=== PATIENT | male | born 1975 | race Caucasian/White ===

== ENCOUNTER → 2018-04-07 10:08 | Outpatient (CLI) | payer OTHER, SELFPAY ==
[2017-04-12 09:28] VITALS: BMI 29.4
[2018-04-07 11:20] LABS: Color, Urine Yellow (Yellow); Glucose, Dipstick 50 mg/dl (Normal); Ketone-Dipstick 15 mg/dl (Negative); Leukocyte Esterase-Dipstick Negative /ul (Negative); Nitrite-Dipstick Negative (Negative); Occult Blood-Urine Negative /ul (Negative); Protein-Dipstick Negative (Negative); Specific Gravity, Urine 1.015 (1.002-1.030); Urine Bilirubin Dipstick Negative (Negative); Urine Clarity Clear (Clear); Urine Urobilinogen Normal (Normal); Urine pH 6.5 (5.0 - 8.0)
[2018-04-07 11:23] LABS: Absolute Lymphocyte Count 1.75 X10^3/ul (0.83-4.51); Absolute Neutrophil Count 4.8 X10^3/uL (2.0-7.7); Basophil# 0.03 X10^3/uL; Basophil% 0.4 % (0-1); Eosinophils% 1.4 % (0-5); Hematocrit 46.7 % (40-54); Hemoglobin 15.5 g/dl (13.0-16.5); Lymphocyte # 1.75 X10^3/ul (4.0); Lymphocyte % 24.6 % (19-41); Mean Corp Hgb Conc 33.2 g/gl (32-36); Mean Corpuscular Hgb 29.2 pg (27.0-32.0); Mean Corpuscular Volume 87.9 fL (80-94); Mean Platelet Vol. 10.8 fl (6.2-12.0); Monocyte# 0.44 X10^3/uL; Monocyte% 6.2 % (0-10); Neutrophil # 4.78 X10^3/uL (2.7-7.7); Neutrophil % 67.3 % (47-70); Platelet Count 224 K/mm3 (150-450); RBC Distribution Width CV 12.9 % (11.6-14.6); RBC Distribution Width SD 41.2 fl (35.1-43.9); Red Blood Count 5.31 M/mm3 (4.6-6.2); White Blood Count 7.1 K/mm3 (4.4-11.0)
[2018-04-07 11:24] LABS: POSITIVE COUNT NO; POSITIVE DIFFERENTIAL NO; POSITIVE MORPHOLOGY NO
[2018-04-07 11:48] LABS: ALB/GLOB Ratio 1.3 RATIO (0.9-2.4); AST(SGOT) 16 U/L (15-37); Alanine Aminotransfer ALT/SGPT 28 U/L (16-61); Albumin, Serum 3.9 g/dL (3.2-5.0); Alkaline Phosphatase 74 U/L (45-117); Anion Gap 6 (5-15); BUN 15 mg/dL (7-18); BUN/Creat Ratio 15.8 RATIO (10-20); Calcium,Total 8.6 mg/dL (8.5-10.1); Chloride 107 mmol/L (98-107); Cholesterol 153 mg/dL (200); Creatinine, Serum 0.95 mg/dL (0.70-1.30); EST Glomerular Filtration Rate 91 mL/min (>60); Est Glom Filt Rate - Afr Amer 111 mL/min (>60); Globulin 3.1 g/dL (2.2-4.2); Glucose 129 mg/dL (74-106); High Density Lipoprotein 54 mg/dL; Potassium 4.4 mmol/L (3.5-5.1); Sodium Level 141 mmol/L (136-145); Triglycerides 108 mg/dL; Very Low Density Lipoprotein 22 mg/dL (5-40)
[2018-04-07 11:53] LABS: Hemoglobin A1c 7.8 % (4.2-6.3)
== END ==
PROVIDERS: Family Provider Family Medicine; PCP Family Medicine; Referring Provider Family Medicine; Visit Provider Family Medicine
DX: Z00.00 Encounter for general adult medical examination without abnormal findings (principal); E11.65 Type 2 diabetes mellitus with hyperglycemia; E78.00 Pure hypercholesterolemia, unspecified
CPT/HCPCS: 36415; 80053; 80061; 81002; 83036; 85025

== ENCOUNTER 2018-07-03 13:29 | Emergency (ER) | payer OTHER, SELFPAY ==
[2018-07-03 13:30] VITALS: BP 145/94; PULSE 113; RESP 16; TEMP 36.7; O2SAT 96; BMI 29.0
--- NOTE | 2018-07-03 13:50 | RAD_ITS ---
STUDY: X-RAY CHEST REASON FOR EXAM: Male, 42 years old. Hemoptysis. TECHNIQUE: PA and lateral views of the chest. COMPARISON: Comparison is made with prior examination dated April 12, 2017. FINDINGS: EKG electrodes are seen. The lungs are clear and expanded. There is no demonstrated pleural abnormality. Normal size heart. Calcified right hilar lymph nodes. Normal visualized pulmonary arteries. Normal visualized aortic arch and descending thoracic aorta. Normal visualized thoracic spine. Normal visualized ribs, clavicles, and shoulders. There is no demonstrated abnormality of the visualized soft tissue structures of the upper abdomen. RAD/Chest PA and Lateral IMPRESSION: Normal x-ray examination of the chest. Electronically Signed: Joaquin Frye, at 15:01 EST , Service support ,
--- NOTE | 2018-07-03 13:55 | ED.VIS.GEN ---
History of Present Illness Chief Complaint: Cough Detail of Chief Complaint: Hemoptysis Informant: Patient Onset: Today Context: Sudden Onset Quality: Coughed twice at work both times brian hemoptysis Current Severity: Mild Maximum Severity: Mild Worsened by: Nothing Relieved by: Nothing Associated Symptoms: None Narrative: 42-year-old gentleman with history of diabetes and CVA 8 years ago who presents with hemoptysis. He states he coughed while working and noted brian blood. He went to the way scan coughed again and noted brian blood. He contacted nurse who recommended he go to the walk-in clinic. The now [facility] referred him to the emergency department. He is a smoker. He smoked for 30 years. He smokes approximately 1 pack/day. He denies fever, chills or night sweats. He denies weight loss. He denies myalgias arthralgias. He denies chest pain. He has no history of pulmonary embolus or DVT nor does he have any risk factors. He denies leg pain, swelling discoloration. He is on no anticoagulant. He states that he takes an aspirin a day. Prior similar symptoms: No Recent Illness/Hospitalization: No Past Medical History - Allergies and Home Meds Allergies/Adverse Reactions: Allergies No Known Allergies Allergy (Verified 07/03/18 13:32) Primary Care Physician: Drake Deal MD [Primary Care Provider] - Prior records reviewed: Yes Past Medical History: - - Diabetes and CVA Surgical History: no surgical history Lives: Spouse/ Significant Other Smoking Status: Current every day smoker Alcohol: None Review of Systems General: Denies: Chills, Fever, Malaise, Subjective, Sweats, Weight loss Eyes: Denies: Visual changes - bilaterally, Blurred Vision - bilaterally, Diplopia ENT: Denies: Bilateral ear pain, Rhinorrhea, Sore throat Cardiovascular: Denies: Chest pain, Palpitations Respiratory: Denies: Dyspnea, Cough, Dyspnea on exertion Gastrointestinal: Denies: Abdominal pain, Nausea, Vomiting, Diarrhea, Melena, Hematochezia Genitourinary: Denies: Dysuria, Hematuria, Frequency Musculoskeletal: Denies: Myalgias, Arthralgias, Neck pain, Back pain, Extremity Pain Skin: Denies: Rash, Wounds Neurological: Denies: Headache, Weakness, Parasthesia, Numbness Hematologic: Denies: Easy bruising, Easy bleeding Allergy: Denies: Uticaria Physical Exam Vital Signs/Narrative: Vital Signs Temp Pulse Resp BP Pulse Ox 07/03/18 13:30 98.1 F 113 H 16 145/94 H 96 Inital Vital Signs reviewed: Yes General: Well nourished, Well developed, No Acute Distress Head: Normocephalic, Atraumatic Eyes: Perrl, EOMI. Negative for: Pale conjunctiva, Scleral icterus ENT: Moist mucous membranes, No rhinorrhea, TM's clear Neck: Supple, Nontender, No lymphadenopathy, No JVD Cardiovascular: Regular rate, Regular rhythm, No murmurs, Normal S1, Normal S2 Respiratory: No distress, CTA bilaterally, Chest nontender Abdomen: Soft, Nontender, Nondistended, Normal bowel sounds, No masses Back: Nontender, Normal Inspection. Negative for: CVA tenderness Extremities: - - There is no asymmetry, swelling, discoloration, leg vein distention, palpable cords or tenderness along the distribution of the deep venous system. Skin: Normal color, No rash, No Trauma. Negative for: Cyanosis, Jaundice Neurological: Alert, Oriented x3, Cranial nerves II-XII grossly intact, Normal Strength, Normal Sensation Psychological: Normal affect, Normal Mood Diagnostic/Tx/Re-eval Chest X-Ray - ED: 2 View, Read by ED Physician, Unchanged - Comparison film April 12, 2017, Normal, Heart, Lungs, Mediastinum, Bony Structures, No Acute Disease CMP, CBC are unremarkable. D-dimer is less than 0.27. With unremarkable chest x-ray no further workup is indicated. - Rhythm Strip Rhythm Strip: Sinus Rhythm Rate: 89 Ectopy: None - Medical Decision Making With history of smoking and hemoptysis need to evaluate for malignancy, infectious etiology, pulmonary embolus bronchitis. Patient states cough started approximately 8 months ago. To evaluate patient a CBC, comprehensive metabolic panel and d-dimer was obtained. ED Disposition - Plan for ED Patient: Disposition: Home or Assisted Living Diagnosis: Hemoptysis Instructions: ED Hemoptysis Referrals: Drake Deal MD [Primary Care Provider] - 3-5 Days if not improving
[2018-07-03 14:13] VITALS: O2SAT 98
[2018-07-03 14:17] VITALS: BP 133/83; PULSE 100; RESP 16; O2SAT 98
[2018-07-03 14:44] LABS: Absolute Lymphocyte Count 1.81 X10^3/ul (0.83-4.51); Absolute Neutrophil Count 4.7 X10^3/uL (2.0-7.7); Basophil# 0.03 X10^3/uL; Basophil% 0.4 % (0-1); Eosinophil# 0.09 X10^3/uL; Eosinophils% 1.3 % (0-5); Hematocrit 45.9 % (40-54); Hemoglobin 15.2 g/dl (13.0-16.5); Lymphocyte # 1.81 X10^3/ul (4.0); Lymphocyte % 25.2 % (19-41); Mean Corp Hgb Conc 33.1 g/gl (32-36); Mean Corpuscular Hgb 29.2 pg (27.0-32.0); Mean Corpuscular Volume 88.1 fL (80-94); Mean Platelet Vol. 10.9 fl (6.2-12.0); Monocyte# 0.52 X10^3/uL; Monocyte% 7.2 % (0-10); Neutrophil # 4.72 X10^3/uL (2.7-7.7); Neutrophil % 65.8 % (47-70); Platelet Count 207 K/mm3 (150-450); RBC Distribution Width CV 13.1 % (11.6-14.6); RBC Distribution Width SD 41.9 fl (35.1-43.9); Red Blood Count 5.21 M/mm3 (4.6-6.2); White Blood Count 7.2 K/mm3 (4.4-11.0)
--- NOTE | 2018-07-03 14:47 | NURSING ---
CHEMISTRIES HEMOLIZED
[2018-07-03 14:49] LABS: POSITIVE COUNT NO; POSITIVE DIFFERENTIAL NO; POSITIVE MORPHOLOGY NO
[2018-07-03 14:57] LABS: D-Dimer Quantitative (DVT/PE) < 0.27 FEU/ug/m (0.27-0.49)
[2018-07-03 15:29] LABS: ALB/GLOB Ratio 1.3 RATIO (0.9-2.4); AST(SGOT) 20 U/L (15-37); Alanine Aminotransfer ALT/SGPT 36 U/L (16-61); Albumin, Serum 3.8 g/dL (3.2-5.0); Alkaline Phosphatase 74 U/L (45-117); Anion Gap 8 (5-15); BUN 16 mg/dL (7-18); BUN/Creat Ratio 13.6 RATIO (10-20); Calcium,Total 8.5 mg/dL (8.5-10.1); Chloride 108 mmol/L (98-107); Creatinine, Serum 1.18 mg/dL (0.70-1.30); EST Glomerular Filtration Rate 71 mL/min (>60); Est Glom Filt Rate - Afr Amer 86 mL/min (>60); Estimated Creatinine Clearance 87.68 ml/min; Globulin 2.9 g/dL (2.2-4.2); Glucose 126 mg/dL (74-106); Potassium 3.8 mmol/L (3.5-5.1); Protein, Total 6.7 g/dL (6.4-8.2); Sodium Level 142 mmol/L (136-145)
[2018-07-03 15:43] VITALS: BP 128/84; PULSE 91
== END 2018-07-03 15:48 | disposition home or self-care (01) ==
PROVIDERS: Emergency Provider Emergency Medicine; Family Provider Family Medicine; PCP Family Medicine
DX: R04.2 Hemoptysis (principal); E11.9 Type 2 diabetes mellitus without complications; F17.200 Nicotine dependence, unspecified, uncomplicated; Z79.82 Long term (current) use of aspirin; Z86.73 Personal history of transient ischemic attack (TIA), and cerebral infarction without residual deficits
CPT/HCPCS: 71046; 80053; 85025; 85379; 96360; 99284; J7030; J7040; A4216

== ENCOUNTER → 2018-12-15 09:10 | Outpatient (CLI) | payer OTHER, SELFPAY ==
[2018-12-15 10:20] LABS: Absolute Lymphocyte Count 2.05 X10^3/uL (0.83-4.51); Absolute Neutrophil Count 3.8 X10^3/uL (2.0-7.7); Basophil# 0.07 X10^3/uL; Color, Urine Yellow (Yellow); Eosinophil# 0.17 X10^3/uL; Eosinophils% 2.5 % (0-5); Glucose, Dipstick 50 mg/dl (Normal); Hematocrit 48.9 % (40-54); Hemoglobin 16.1 g/dL (13.0-16.5); Ketone-Dipstick 5 mg/dl (Negative); Leukocyte Esterase-Dipstick Negative /ul (Negative); Lymphocyte # 2.05 X10^3/ul (4.0); Lymphocyte % 30.7 % (19-41); Mean Corp Hgb Conc 32.9 g/dL (32-36); Mean Corpuscular Hgb 29.4 pg (27.0-32.0); Mean Corpuscular Volume 89.4 fL (80-94); Monocyte# 0.53 X10^3/uL; Monocyte% 7.9 % (0-10); NRBC Flagged by Analyzer 0 % (0-5); Neutrophil # 3.84 X10^3/uL (2.7-7.7); Neutrophil % 57.6 % (47-70); Nitrite-Dipstick Negative (Negative); Occult Blood-Urine Negative /ul (Negative); Platelet Count 195 K/mm3 (150-450); Protein-Dipstick 15 mg/dl (Negative); RBC Distribution Width CV 12.8 % (11.6-14.6); RBC Distribution Width SD 42.4 fl (35.1-43.9); Red Blood Count 5.47 M/mm3 (4.6-6.2); Specific Gravity, Urine 1.015 (1.002-1.030); Urine Bilirubin Dipstick Negative (Negative); Urine Clarity Clear (Clear); Urine Urobilinogen 1 mg/dl (Normal); Urine pH 6.5 (5.0 - 8.0); White Blood Count 6.7 K/mm3 (4.4-11.0)
[2018-12-15 10:45] LABS: ALB/GLOB Ratio 1.2 RATIO (0.9-2.4); AST(SGOT) 17 U/L (15-37); Alanine Aminotransfer ALT/SGPT 29 U/L (16-61); Albumin, Serum 3.7 g/dL (3.2-5.0); Alkaline Phosphatase 77 U/L (45-117); Anion Gap 5 (5-15); BUN 12 mg/dL (7-18); BUN/Creat Ratio 11.9 RATIO (10-20); Chloride 109 mmol/L (98-107); Cholesterol 155 mg/dL (200); Creatinine, Serum 1.01 mg/dL (0.70-1.30); EST Glomerular Filtration Rate 85 mL/min (>60); Est Glom Filt Rate - Afr Amer 103 mL/min (>60); Globulin 3.2 g/dL (2.2-4.2); Glucose 148 mg/dL (74-106); High Density Lipoprotein 64 mg/dL; Potassium 4.8 mmol/L (3.5-5.1); Protein, Total 6.9 g/dL (6.4-8.2); Sodium Level 142 mmol/L (136-145); Triglycerides 67 mg/dL; Very Low Density Lipoprotein 13 mg/dL (5-40)
== END ==
PROVIDERS: Family Provider Family Medicine; PCP Family Medicine; Referring Provider Family Medicine; Visit Provider Family Medicine
DX: Z00.00 Encounter for general adult medical examination without abnormal findings (principal); E11.65 Type 2 diabetes mellitus with hyperglycemia; E78.00 Pure hypercholesterolemia, unspecified; Z86.73 Personal history of transient ischemic attack (TIA), and cerebral infarction without residual deficits
CPT/HCPCS: 36415; 80053; 80061; 81002; 85025

== ENCOUNTER → 2019-04-27 09:42 | Outpatient (CLI) | payer OTHER, SELFPAY ==
[2019-03-04 16:06] VITALS: BMI 29.0
[2019-04-27 11:02] LABS: AST(SGOT) 17 U/L (15-37); Alanine Aminotransfer ALT/SGPT 48 U/L (16-61); Albumin, Serum 4.1 g/dL (3.2-5.0); Alkaline Phosphatase 79 U/L (45-117); Bilirubin, Direct 0.09 mg/dL (0.00-0.30); Cholesterol 153 mg/dL (200); Globulin 3.2 g/dL (2.2-4.2); High Density Lipoprotein 68 mg/dL; Protein, Total 7.3 g/dL (6.4-8.2); Triglycerides 103 mg/dL; Very Low Density Lipoprotein 21 mg/dL (5-40)
[2019-04-27 11:12] LABS: Hemoglobin A1c 7.4 % (4.2-6.3)
== END ==
PROVIDERS: Family Provider Family Medicine; PCP Family Medicine; Referring Provider Family Medicine; Visit Provider Family Medicine
DX: E78.00 Pure hypercholesterolemia, unspecified (principal); E11.65 Type 2 diabetes mellitus with hyperglycemia
CPT/HCPCS: 36415; 80061; 80076; 83036

== ENCOUNTER → 2019-12-13 07:48 | Outpatient (CLI) | payer OTHER, SELFPAY ==
[2019-03-04 16:06] VITALS: BMI 29.0
[2019-12-13 08:40] LABS: Absolute Lymphocyte Count 1.86 X10^3/uL (0.83-4.51); Absolute Neutrophil Count 3.6 X10^3/uL (2.0-7.7); Basophil# 0.04 X10^3/uL; Basophil% 0.7 % (0-1); Eosinophil# 0.12 X10^3/uL; Hematocrit 46.6 % (40-54); Hemoglobin 15.6 g/dL (13.0-16.5); Lymphocyte # 1.86 X10^3/ul (4.0); Lymphocyte % 30.4 % (19-41); Mean Corp Hgb Conc 33.5 g/dL (32-36); Mean Corpuscular Hgb 29.9 pg (27.0-32.0); Mean Corpuscular Volume 89.3 fL (80-94); Monocyte# 0.44 X10^3/uL; Monocyte% 7.2 % (0-10); NRBC Flagged by Analyzer 0 % (0-5); Neutrophil # 3.64 X10^3/uL (2.7-7.7); Neutrophil % 59.4 % (47-70); Platelet Count 194 K/mm3 (150-450); RBC Distribution Width CV 12.4 % (11.6-14.6); RBC Distribution Width SD 40.9 fl (35.1-43.9); Red Blood Count 5.22 M/mm3 (4.6-6.2); White Blood Count 6.1 K/mm3 (4.4-11.0)
[2019-12-13 08:48] LABS: Color, Urine Straw (Yellow); Glucose, Dipstick 50 mg/dl (Normal); Ketone-Dipstick Negative (Negative); Leukocyte Esterase-Dipstick Negative /ul (Negative); Nitrite-Dipstick Negative (Negative); Occult Blood-Urine Negative /ul (Negative); Protein-Dipstick Negative (Negative); Specific Gravity, Urine 1.015 (1.002-1.030); Urine Bilirubin Dipstick Negative (Negative); Urine Clarity Clear (Clear); Urine Urobilinogen Normal (Normal); Urine pH 6.5 (5.0 - 8.0)
[2019-12-13 09:11] LABS: ALB/GLOB Ratio 1.3 RATIO (0.9-2.4); AST(SGOT) 13 U/L (15-37); Alanine Aminotransfer ALT/SGPT 28 U/L (16-61); Albumin, Serum 3.9 g/dL (3.2-5.0); Alkaline Phosphatase 75 U/L (45-117); Anion Gap 2 (5-15); BUN 10 mg/dL (7-18); BUN/Creat Ratio 10.8 RATIO (10-20); Calcium,Total 8.5 mg/dL (8.5-10.1); Chloride 105 mmol/L (98-107); Cholesterol 156 mg/dL (200); Creatinine, Serum 0.93 mg/dL (0.70-1.30); EST Glomerular Filtration Rate 93 mL/min (>60); Est Glom Filt Rate - Afr Amer 113 mL/min (>60); Globulin 3.1 g/dL (2.2-4.2); Glucose 192 mg/dL (74-106); High Density Lipoprotein 62 mg/dL; Sodium Level 138 mmol/L (136-145); Triglycerides 73 mg/dL; Very Low Density Lipoprotein 15 mg/dL (5-40)
== END ==
PROVIDERS: PCP Family Medicine; Referring Provider Family Medicine; Visit Provider Family Medicine
DX: Z00.00 Encounter for general adult medical examination without abnormal findings (principal); E11.65 Type 2 diabetes mellitus with hyperglycemia; E78.00 Pure hypercholesterolemia, unspecified
CPT/HCPCS: 36415; 80053; 80061; 81002; 83036; 85025

== ENCOUNTER 2020-12-08 15:30 | Outpatient (RCR) | payer OTHER, SELFPAY ==
[2020-11-05 07:33] VITALS: BMI 26.4
--- NOTE | 2020-11-12 16:37 | HP.PTEVAL_ITS ---
Patient's Visit Information LIYAH ARREDONDO is a 45 year old M referred to Physical Therapy by Dr. Dani Strickland DO with a diagnosis of Distal Biceps Rupture. Date of Evaluation: 11/12/20 Physical Therapist: Monica Garcia DPT - Visit Plan Frequency: 2x /Week Duration: 4 Weeks Plan: Distal Biceps Rupture-nonsurgical- focus on scapular strength/stabilization and pain free biceps/triceps strengthening. HEP Given IE: Postural correction, scapular retraction, corner stretch, isometric biceps, isometric triceps - Subjective Right hyperextended elbow- at first didnt think anything of it- saw who told him he ripped tendons in the elbow. Family MD gave him anti-inflammatories- took a week off work. No significant changes so 3 weeks ago he was playing [employer] it was so painful. He ended seeing Dr. Walters who reported that he ruptured the distal biceps. Pain is located bicipital groove, posterior shoulder blade and all around the top - small amount in the elbow area. Usually a side sleeper but is now unable due to pain so he is sleeping his back. If he lays on his back with his head turned to the right he has tingling. Generally going to work and light stuff he has no pain. He is now sleeping with anti- inflammatory Edolac. He feels that he is 60% better with the medication. Has had x-rays but no MRI. Start conservative with PT- surgery is an option as needed. Worst: 08/08 Agg: cornhole, shoveling Eases: anti- inflam, Tylenol, pain meds doesn't like to take so he doesn't. Different positions cane make it tingle. Describes the pain as stabbing pains, dull pain. Currently a 05/10. Work: [employer]- lifting up to #50- not repetitive lifting- no problems doing his job. Right hand dominate. Very active even when not at work. 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 No PATTON, blurred vision, dizziness or lightheadedness. PMHx/Meds: no change since saw . - Objective Posture: FH, RS- can correct but does not maintain. Gait: good arm swing and trunk rotation. Palpation: tender along medial scapula- infraspinatus- bicipital groove. ROM: WFL in all planes of the cervical and UE. 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 Goal Time Frame: 4-6 Weeks Goal 3:: Patient will demo full strength in right shoulder with 0/10 pain Goal Time Frame: 4-6 Weeks - Rehabilitation Potential Physical Therapy Diagnosis: Patient presents with hypomobility- he has decreased pain free ROM, strength, scapular s/s, muscular endurance leading to poor posture and increased pain with ADL's. Rehabilitation Potential: Good - Anticipated Interventions Patient/Client Instruction: Educate patient on: Benefits of Fitness Program Therapeutic Exercise to Include: Strength training, Endurance training, Balance training, Coordination, Body mechanics, Postural training, Flexibilty training, Passive ROM, Active ROM, Dynamic Lumbar Stabilization, Scapular Strength/Stabilization For the Purpose of:: To improve muscle performance and motor function Manual Therapy Techniques to Include: Soft tissue mobilization TENS: Yes Cryotherapy (ice pack, ice massage): Yes Thermo therapy (hot pack): Yes Ultrasound (thermal/non thermal): Yes Thank you for the opportunity to evaluate your patient. For Medicare and Medicare HMO plans, please review the plan of care and approve it. It will need to be FAXED BACK to us at [phone] for Medicare purposes. For Medicare only, by signing this I certify the plan of care. Please let me know if there are questions or concerns regarding this plan of care. Physician Signature: Date:
--- NOTE | 2021-03-01 08:32 | HP.PT.NRP ---
LIYAH ARREDONDO was seen in my office for initial evaluation on 11/12/20. The following Plan of Care was established for this patient: Initial Frequency: 2x /Week Initial Duration: 4 Weeks Patient/Client Instruction: Educate patient on: Benefits of Fitness Program Therapeutic Exercise to Include: Strength training, Endurance training, Balance training, Coordination, Body mechanics, Postural training, Flexibilty training, Passive ROM, Active ROM, Dynamic Lumbar Stabilization, Scapular Strength/Stabilization For the Purpose of:: To improve muscle performance and motor function Manual Therapy Techniques to Include: Soft tissue mobilization TENS: Yes Cryotherapy (ice pack, ice massage): Yes Thermo therapy (hot pack): Yes Ultrasound (thermal/non thermal): Yes This patient was last seen in our office . Pertinent comments regarding their Physical therapy will appear below: Patient has not attended PT in over 4 weeks and is appropriate for discharge- return to MD for further evaluation as needed. At this point I will be discontinuing this patient from physical therapy. I would be happy to see this patient again in the future if found appropriate by the physician. Thank you! Monica Garcia DPT Balance/Gait/Functional tests - Balance/Special Test Scores Quick DASH Score: [phone]
== END 2020-12-08 19:00 | disposition home or self-care (01) ==
LOC: PT 15:30
PROVIDERS: PCP Family Medicine; Referring Provider Orthopaedic Surgery; Visit Provider Orthopaedic Surgery
DX: S46.211D Strain of muscle, fascia and tendon of other parts of biceps, right arm, subsequent encounter (principal)
CPT/HCPCS: 97110; 97162

== ENCOUNTER → 2022-03-25 | Outpatient (CLI) | payer OTHER, SELFPAY ==
[2022-03-25 08:49] LABS: Anion Gap 4 (5-15); BUN 11 mg/dL (7-18); BUN/Creat Ratio 11.3 RATIO (10-20); Calcium,Total 9.3 mg/dL (8.5-10.1); Chloride 105 mmol/L (98-107); Creatinine, Serum 0.98 mg/dL (0.70-1.30); EST Glomerular Filtration Rate 87 mL/min (>60); Est Glom Filt Rate - Afr Amer 105 mL/min (>60); Glucose 248 mg/dL (74-106); Potassium 4.1 mmol/L (3.5-5.1); Sodium Level 139 mmol/L (136-145)
[2022-03-25 08:54] LABS: Hemoglobin A1c 8.9 % (3.8-5.6)
== END | disposition home or self-care (01) ==
LOC: LAB 07:53
PROVIDERS: PCP Family Medicine
DX: E11.9 Type 2 diabetes mellitus without complications (principal)
CPT/HCPCS: 36415; 80048; 83036

== ENCOUNTER 2022-05-12 06:06 | Inpatient (IN) | payer OTHER, SELFPAY ==
[2022-05-12] VITALS (8 sets, daily range): BP systolic 109–136; BP diastolic 73–96; PULSE 71–110; RESP 12–24; TEMP 36.1–36.5; O2SAT 92–98; BMI 25.4
--- NOTE | 2022-05-12 06:10 | CT_ITS ---
We are attempting to reach an attending provider to discuss findings. An addendum with communication details will be sent when the communication is complete. STUDY: CTA HEAD AND NECK WITH CONTRAST REASON FOR EXAM: Male, 46 years old. Neuro deficit, acute, stroke suspected RADIATION DOSAGE (If Supplied By Facility): CTDIvol = ( 19.94 ) mGy, DLP = ( 810.39 ) mGycm TECHNIQUE: CT angiography was performed with a multi-detector CT scanner. Data acquisition was obtained from the skull base through the vertex following intravenous administration of 100 mL Isovue-370. MIP images were reconstructed from the axial data set. Post-processing of the angiographic images was performed, with multiplanar reformation and 3D reconstruction. Individualized dose optimization techniques were used for this CT. COMPARISON: CT head May 12, 2022. FINDINGS: Normal bilateral petrous carotid arteries. Normal right cavernous carotid artery with a normal supraclinoid bifurcation. Normal left cavernous carotid artery with a normal supraclinoid bifurcation. Normal right A1 segments of the anterior cerebral artery. Normal left A1 segments of the anterior cerebral artery. Normal intact anterior communicating artery (ACOM). Normal bilateral A2 segments of the anterior cerebral arteries. Normal right M1 and M2 segments of the middle cerebral arteries, with a normal M1 bifurcation. Normal left M1 and M2 segments of the middle cerebral arteries, with a normal M1 bifurcation. Normal right posterior communicating artery (PCOM). Normal left posterior communicating artery (PCOM). Normal bilateral vertebral arteries. Normal basilar artery with a normal basilar bifurcation. The visualized bilateral superior cerebellar (SCA) arteries are normal. Bilateral origin of the posterior cerebral arteries which are normal variants. There is no demonstrated aneurysm of the [place]. There is no demonstrated abnormality of the visualized brain. AORTIC ARCH: Normal visualized aortic arch. Normal origins of the brachiocephalic, left common carotid, and left subclavian arteries. RIGHT CAROTID ARTERIES: Normal right common carotid artery (CCA). Normal right common carotid bulb. Normal origin of the right internal carotid (ICA) artery without a hemodynamically significant stenosis. Normal visualized cervical portion of the right internal carotid artery. Normal origin of the right external carotid artery (ECA). LEFT CAROTID ARTERIES: Normal left common carotid artery (CCA). Normal left common carotid bulb. Normal origin of the left internal carotid (ICA) artery without a hemodynamically significant stenosis. Normal visualized cervical portion of the left internal carotid artery. Normal origin of the left external carotid artery (ECA). VERTEBRAL ARTERIES: Normal bilateral vertebral arteries. CT/STROKE CTA Head AND Neck W/Con IMPRESSION: Normal CTA Head and neck with contrast. Electronically Signed: Agustin Cesar MD at 6:52 EST Reading Location ID and State: [id number] / , Service support ,
--- NOTE | 2022-05-12 06:10 | RAD_ITS ---
INDICATION: Neuro deficit, acute, stroke suspected EXAMINATION/TECHNIQUE: X-RAY - XR Chest 1 View AP portable. 6:55 AM. COMPARISON: 07/03/2018 FINDINGS: LINES/DEVICES: None. LUNGS: No consolidation. No pneumothorax. MEDIASTINUM: Unremarkable. CARDIAC SILHOUETTE: Not enlarged. BONES AND SOFT TISSUES: No acute abnormalities. RAD/Chest 1 View IMPRESSION: No evidence of active intrathoracic disease. Electronically Signed: Melanie Moses MD at 7:23 EST ,
--- NOTE | 2022-05-12 06:10 | CT_ITS ---
We are attempting to reach an attending provider to discuss findings. An addendum with communication details will be sent when the communication is complete. INDICATION: Neuro deficit, acute, stroke suspected EXAMINATION: CT BRAIN - CT Head Stroke Protocol W/O Contrast Injection TECHNIQUE: Multiple axial images were obtained of the head without intravenous contrast. A radiation dose optimization technique was used for this scan. IV Contrast dosage and agent: None. COMPARISON: FINDINGS: BRAIN: No acute bleed. No edema. Ji-white matter differentiation is maintained. VENTRICLES AND SULCI: Not dilated. EXTRA-AXIAL: No hemorrhage, fluid collection, or mass. CALVARIUM / SKULL BASE: Unremarkable. FACE/SINUSES: Unremarkable. SOFT TISSUES: Unremarkable. CT/STROKE Brain/Head without Cont IMPRESSION: No acute abnormality on noncontrast CT. CT angiogram and/or MRI may be helpful to evaluate for acute infarct as clinically indicated. Electronically Signed: Melanie Moses MD at 6:25 EST ,
--- NOTE | 2022-05-12 06:10 | EKG12_ITS ---
Test Reason : POSS STROKE Blood Pressure : / mmHG Vent. Rate : 089 BPM Atrial Rate : 089 BPM P-R Int : 154 ms QRS Dur : 080 ms QT Int : 340 ms P-R-T Axes : 073 056 046 degrees QTc Int : 413 ms Normal sinus rhythm Normal ECG Confirmed by SHARYN GAFFNEY, NORTH ([id number]), commercial production editor ROSELINE GIBSON ([id number]) on 05/16/2022 12:24:19 PM Referred By: Confirmed By:NORTH COLES MD
--- NOTE | 2022-05-12 06:11 | EDS_ITS ---
HPI History of Present Illness Chief Complaint: Neuro S/Sx Informant: patient and family (son) Onset/Context/Timing Onset: Today Context: - (Awoke with symptoms at 430, 1.5 hours prior to arrival) Timing: Continuous Quality and Location: Positive for Left Facial Droop, Left Arm Weakness, Left Leg Weakness, Expressive Aphasia and Difficulty with Ambulation Current Severity: Severe Maximum Severity: Severe Worsened by: Nothing Relieved by: Nothing Associated Symptoms Associated Symptoms: Negative for Headache, Nausea, Vomiting or Chest Pain Narrative Narrative: Patient went to bed at 830 or 9:00 last night, his woke him up at 10:30 PM which was his last known normal, for him to move to a different location and go back to sleep. He woke up at 4:30 AM symptomatic, his son brought him to the emergency department via private vehicle. History of a stroke in the past. Takes aspirin every day no anticoagulants. He is a diabetic. He denies any headache, chest pain, shortness of breath, recent fall or injury. [facility] Medical History Diabetes Stroke Home Medications aspirin 325 mg tablet 325 mg PO DAILY@0800 10/27/14 [History Last Taken Unknown] etodolac 500 mg tablet 500 mg PO ONCE #60 tabs 11/05/20 [Rx Last Taken Unknown] metformin 500 mg 24 hr tablet,extended release 2,000 mg PO DAILY 11/05/20 [History Last Taken Unknown] Allergy/AdvReac Type Severity Reaction Status Date / Time No Known Allergies Allergy Verified 05/12/22 06:32 Family History (Updated 11/05/20 @ 08:02 by Ragini Mccollum) Mother Diabetes Sister Diabetes Surgical History No history of previous surgery Social History household members: spouse and children housing: house Smoking Status: Current every day smoker tobacco type: cigarettes alcohol intake: current alcohol intake frequency: a few times a week Alcohol type: beer details: on weekends what type of physical activity do you participate in: none do you feel safe at home: Yes EXAM Physical Exam Const Vital Signs: 05/12/22 06:07 05/12/22 06:10 05/12/22 06:10 Temperature 97 F L 97 F L Temperature Source Temporal Temporal Pulse Rate 110 H 110 H Respiratory Rate 24 H 24 H Blood Pressure 121/88 H 121/88 H Blood Pressure Mean 99 99 Pulse Ox 94 94 Oxygen Delivery Method Room Air Room Air Room Air 05/12/22 06:10 05/12/22 06:40 Temperature Temperature Source Pulse Rate 110 H 89 Respiratory Rate 24 H 18 Blood Pressure 121/88 H 124/79 H Blood Pressure Mean 99 94 Pulse Ox 94 96 Oxygen Delivery Method Room Air Room Air Positive well nourished and well developed General Appearance ED: well developed and NAD HEENT Reports moist mucous membranes normocephalic and atraumatic Eyes PERRL and EOMs intact bilaterally Neck full ROM, no lymphadenopathy and supple Resp normal respiratory effort and clear to auscultation bilaterally Cardio regular rate, regular rhythm and no murmurs Rate: Negative for tachycardic GI non-tender and non-distended Auscultation: normoactive bowel sounds Palpation: soft Back/Spine no CVA tenderness General Back: other FROM Extremity normal to inspection General Extremety ED: Negative for edema, pulses abnormal or tenderness General Extremity: Negative for edema or pulses abnormal Neuro Neuro Narrative: Dense expressive aphasia, can say ahh when opening mouth but no other sounds or words. Weak on the left side mildly. Significant left facial droop involving the forehead as well. Some decreased sensation on that side as well, but grossly intact. Sensorium / Orientation: awake and alert Skin no rashes or lesions noted and no wounds NIHSS NIHSS Initial: 1a Level of Consciousness: 0 1b LOC Questions (Score 2 if aphasic/stupor): 2 1c LOC Commands (Only score 1st attempt): 0 2 Best Gaze (If aphasic, use reflexive mvmts.): 0 3 Visual: 0 4 Facial Palsy: 3 5 Motor Arm Right (UN = amputation/fusion): 0 5 Motor Arm Left: 1 6 Motor Leg Right: 0 6 Motor Leg Left: 1 7 Limb ataxia (Only + if out of proportion): 0 8 Sensory (Aphasia/stupor=0 or 1, coma=2): 1 9 Best Language: 3 10 Dysarthria (mute, coma=2, intubated=UN): 2 11 Extinction and Inattention (only scored if +): 0 Total Score: 13 Follow up: 1a Level of Consciousness: 0 1b LOC Questions (Score 2 if aphasic/stupor): 2 1c LOC Commands (Only score 1st attempt): 0 2 Best Gaze (If aphasic, use reflexive mvmts.): 0 3 Visual: 0 4 Facial Palsy: 3 5 Motor Arm Right (UN = amputation/fusion): 0 5 Motor Arm Left: 0 6 Motor Leg Right: 0 6 Motor Leg Left: 0 7 Limb ataxia (Only + if out of proportion): 0 8 Sensory (Aphasia/stupor=0 or 1, coma=2): 0 9 Best Language: 2 10 Dysarthria (mute, coma=2, intubated=UN): 1 11 Extinction and Inattention (only scored if +): 0 Total Score: 8 MDM MDM MDM Narrative Medical decision making narrative: Stroke alert was called patient was taken directly to the CT scanner for CT and CT angiography of the head and neck. He is not a tPA candidate because he is a wake-up stroke and we do not have the ability to perform CT perfusion scanning or any emergent MRI here, and his last known well was more than 5 hours ago. Discussed with [facility] stroke neurology Dr. Schrader after the CT returned with no hemorrhage, he agrees, and the patient would meet criteria for transfer if he ends up having an LVO on the CTA. My interpretation of the CT agrees with that of the radiologist. The CTA is negative for anything acute and appears normal according to the radiologist. On reevaluation of the patient he is starting to improve. He is starting to be able to say some words, and now he has no drift in his left upper or lower extremities like he did initially. He still has significant facial droop. Plan is for admission for further work-up and observation/treatment. Lab Data Attestation: I reviewed the patient's lab results. Labs: Laboratory Results - last 24 hr 05/12/22 05/12/22 06:23 06:23 WBC 6.2 RBC 5.18 Hgb 15.3 Hct 45.3 MCV 87.5 MCH 29.5 MCHC 33.8 RDW Std Deviation 39.3 RDW Coeff of Jv 12.2 Plt Count 213 MPV 10.7 Immature Gran % (Auto) 0.300 Neut % (Auto) 58.1 Lymph % (Auto) 31.8 Wilkin % (Auto) 6.6 Eos % (Auto) 2.6 Baso % (Auto) 0.6 Absolute Neuts (auto) 3.6 Absolute Lymphs (auto) 1.96 Nucleated RBC % 0 Sodium 140 Potassium 4.2 Chloride 108 H Carbon Dioxide 25.0 Anion Gap 7 BUN 13 Creatinine 0.96 Estim Creat Clear Calc 103.29 Est GFR (MDRD) Af Amer 107 Est GFR (MDRD) Non-Af 88 BUN/Creatinine Ratio 13.5 Glucose 205 H Calcium 8.8 Troponin I High Sens 7 Radiography Diagnostic Testing: Clinical Impression(s) from Imaging Studies Brain CT 05/12/22 06:10 IMPRESSION: No acute abnormality on noncontrast CT. CT angiogram and/or MRI may be helpful to evaluate for acute infarct as clinically indicated. Electronically Signed: Melanie Moses MD at 6:25 EST , ADDENDUM: 05/12/22 0634 IMPRESSION: No acute abnormality on noncontrast CT. CT angiogram and/or MRI may be helpful to evaluate for acute infarct as clinically indicated. N.B. : The above Results were Read Back by Melanie Moses MD to Robel Harris MD, and understanding confirmed on 05/12/2022 06:27:37 (ET). Electronically Signed: Melanie Moses MD at 6:25 EST , Head/Neck CTA 05/12/22 06:10 IMPRESSION: Normal CTA Head and neck with contrast. Electronically Signed: Agustin Cesar MD at 6:52 EST Reading Location ID and State: [id number] / , Service support , Rhythm Strip Rhythm Strip: Sinus Rhythm Rate: 85 Ectopy: None EKG Initial EKG: Attestation: I personally reviewed and interpreted this EKG as follows: Interpretation: Sinus Rhythm and No Acute Injury Pattern Comments: Normal EKG Stroke Documentation Questions Stroke Team Activated: Yes IV Alteplase (t-PA) Administered: No (Due to timing/wake up stroke) Critical Care Time Critical Care Time: Yes Critical care time (excluding procedures): 30-74 minutes (40 min), Including time spent:, Discussing w/Patient &/or Family/Quarry Boss, Discussing w/Consultants, Arranging Admission or Transfer and Performing Direct Patient Care at Bedside Discharge Plan Triage Chief Complaint: Neuro S/Sx ED Provider: Robel Harris Dx/Rx/DC Orders Clinical Impression: Acute ischemic right MCA stroke Prescriptions: No Action etodolac 500 mg tablet 500 mg PO ONCE Qty: 60 0RF Rx Instructions: Do not take in conjunction with other NSAIDs. Tylenol is okay. aspirin 325 MG tablet 325 mg PO DAILY@0800 metformin 500 mg tablet,ER [email or web address] 24 hr 2,000 mg PO DAILY Primary Care Provider: Drake Deal Referrals: Drake Deal MD [Primary Care Provider] - Disposition Disposition: Acute Care Hospital [facility]
[2022-05-12 06:32] LABS: Absolute Lymphocyte Count 1.96 X10^3/uL (0.83-4.51); Absolute Neutrophil Count 3.6 X10^3/uL (2.0-7.7); Basophil# 0.04 X10^3/uL; Basophil% 0.6 % (0-1); Eosinophil# 0.16 X10^3/uL; Eosinophils% 2.6 % (0-5); Hematocrit 45.3 % (40-54); Hemoglobin 15.3 g/dL (13.0-16.5); Lymphocyte # 1.96 X10^3/ul (0.83-4.51); Lymphocyte % 31.8 % (19-41); Mean Corp Hgb Conc 33.8 g/dL (32-36); Mean Corpuscular Hgb 29.5 pg (27.0-32.0); Mean Corpuscular Volume 87.5 fL (80-94); Mean Platelet Vol. 10.7 fl (6.2-12.0); Monocyte# 0.41 X10^3/uL; Monocyte% 6.6 % (0-10); NRBC Flagged by Analyzer 0 % (0-5); Neutrophil # 3.58 X10^3/uL (2.7-7.7); Neutrophil % 58.1 % (47-70); Platelet Count 213 K/mm3 (150-450); RBC Distribution Width CV 12.2 % (11.6-14.6); RBC Distribution Width SD 39.3 fl (35.1-43.9); Red Blood Count 5.18 M/mm3 (4.6-6.2); White Blood Count 6.2 K/mm3 (4.4-11.0)
[2022-05-12 06:51] LABS: Anion Gap 7 (5-15); BUN 13 mg/dL (7-18); BUN/Creat Ratio 13.5 RATIO (10-20); Calcium,Total 8.8 mg/dL (8.5-10.1); Chloride 108 mmol/L (98-107); Creatinine, Serum 0.96 mg/dL (0.70-1.30); EST Glomerular Filtration Rate 88 mL/min (>60); Est Glom Filt Rate - Afr Amer 107 mL/min (>60); Estimated Creatinine Clearance 103.29 ml/min; Glucose 205 mg/dL (74-106); Potassium 4.2 mmol/L (3.5-5.1); Sodium Level 140 mmol/L (136-145); Troponin-I HS 7 pg/mL (3.0-78.0)
[2022-05-12 07:00] LABS: Prothrombin Time (Protime)PT. 12.6 SECONDS (11.7-14.9)
[2022-05-12 07:01] LABS: Partial Thromboplast Time 25.4 Seconds (24.1-36.2)
[2022-05-12 07:40] LABS: Bedside Glucose 179 mg/dL (74-106)
--- NOTE | 2022-05-12 08:11 | MRI_ITS ---
We are attempting to reach an attending provider to discuss findings. An addendum with communication details will be sent when the communication is complete. EXAM: MR HEAD WITHOUT INTRAVENOUS CONTRAST CLINICAL INDICATION: concern for cva, L arm weakness, R facial droop, h/o prior cva 2010 TECHNIQUE: Multiplanar and multisequence MR images of the brain were obtained without intravenous contrast. This report was created using [employer] report generation technology. COMPARISON: CT head without contrast and CTA head with contrast 05/12/2022. FINDINGS: BRAIN AND EXTRA-AXIAL SPACES: Prominent diffusion restriction in the right inferior frontal gyrus and a small portion of the right insular cortex. This is consistent with acute cortical gyral ischemic infarct. No intra- or extra-axial hemorrhage. No intracranial mass or mass effect. Posterior fossa structures are unremarkable. Basal cisterns are patent. SELLA: Unremarkable. Normal sella turcica, pituitary gland, infundibular stalk, optic chiasm and hypothalamus. AUDITORY SYSTEM: Unremarkable. The internal auditory canals are patent. BONES/JOINTS: Unremarkable. No discrete lytic or blastic abnormalities. SINUSES: Unremarkable as visualized. Clear. MASTOID AIR CELLS: Unremarkable as visualized. Clear. ORBITS: Unremarkable as visualized. Both globes, extraocular muscles, optic nerves and retrobulbar fat appear unremarkable. VASCULATURE: Unremarkable as visualized. Normal flow voids in the major intracranial circulation. MRI/Brain without Contrast IMPRESSION: Acute cortical gyral ischemic infarct involving nearly the entire right inferior frontal gyrus and the right anterior insular cortex. Electronically Signed: Aurelio Coleman MD at 10:36 EST ,
--- NOTE | 2022-05-12 08:11 | ECHOD_ITS ---
Reason For Study: TIA/STROKE Procedure This was a 2D Doppler, Color Flow transthoracic echocardiogram. Exam performed portable in patient room. Left Ventricle Normal size and thickness. The left ventricular ejection fraction is 55 %. Normal diastololic function. Right Ventricle Normal right ventricle. Atria The left and right atria are normal. Bubble contrast study is positive for PFO. Mitral Valve The mitral valve is structurally normal. No prolapse or stenosis seen. Tricuspid Valve Normal tricuspid valve. Aortic Valve There is no aortic stenosis. No aortic valve insufficiency. Pulmonic Valve The pulmonic valve is not well visualized. Great Vessels Normal sized aortic root. Pericardium/Pleural No pericardial effusion. Medication Performed a rapid injection of agitated mix of 9 cc saline and 1cc air to assess for atrial septal defect. MMode/2D Measurements & Calculations LVIDd: 4.6 cm IVSd: 0.64 cm Ao root diam: 2.7 cm LVIDs: 3.3 cm LVPWd: 0.97 cm RVDd: 2.3 cm FS: 28.4 % LAV(MOD-sp4): 26.5 ml LVAd ap4: 22.2 cm2 SV(MOD-sp4): 30.2 ml LVLd ap4: 8.0 cm EDV(MOD-sp4): 52.4 ml EDV(sp4-el): 51.9 ml LVAs ap4: 12.8 cm2 LVLs ap4: 6.6 cm ESV(MOD-sp4): 22.3 ml ESV(sp4-el): 21.0 ml EF(MOD-sp4): 57.5 % EF(sp4-el): 59.5 % SV(sp4-el): 30.9 ml LA A4 area: 12.9 cm2 LA dimension(2D): 3.4 cm RA A4 area: 13.0 cm2 Time Measurements MV dec time: 0.18 sec Doppler Measurements & Calculations MV E max paco: 46.7 cm/sec Lat Peak E' Paco: 16.4 cm/sec Med Peak E' Paco: 11.0 cm/sec MV A max paco: 57.0 cm/sec E/E' lat: 2.8 E/E' med: 4.2 MV E/A: 0.82 MV V2 max: 57.9 cm/sec MV dec slope: 266.3 cm/sec2 Ao V2 max: 95.8 cm/sec MV max P.3 mmHg Ao max P.7 mmHg MV V2 mean: 41.2 cm/sec Ao V2 mean: 67.4 cm/sec MV mean P.72 mmHg Ao mean P.1 mmHg MV V2 VTI: 18.4 cm Ao V2 VTI: 20.1 cm AV (velocity ratio): 0.77 LV V1 max: 88.5 cm/sec PA V2 max: 78.9 cm/sec LV V1 max P.1 mmHg PA V2 mean: 54.6 cm/sec LV V1 mean P.6 mmHg LV V1 mean: 59.7 cm/sec LV V1 VTI: 15.5 cm ECHO/Echo Complete Interpretation Summary The left ventricular ejection fraction is 55 %. Bubble contrast study appears positive for PFO. Consider RYLAND for further evalua tion if clinically indicated. Ordering Physician: Keily Pack Referring Physician: Sergio Deal M.D. Performed By: Roxanne Ruiz RCS
--- NOTE | 2022-05-12 08:22 | HP.PCM.HOS_ITS ---
HPI - General General Date of Admission: 05/12/22 Date of Service: 05/12/22 Chief Complaint: Neurological changes HPI Narrative LIYAH ARREDONDO, 38-year-old male with a history of CVA in 2010 with no residual deficits and type 2 diabetes mellitus presented 05/12/2022 with left arm weakness, dysarthria, right side discoordination and right-sided facial droop. His last known seen normal was at 10:30 PM, there was question if he had any deficits when he woke up at midnight as he had yelled out of his room about the dog and appeared to be able to get his words out but was not seen and he is unsure if he had any deficits at that time. Woke up at 430 and noticed deficits, initially tried to go to work but came back and his brought him to the ER. In the ED he was not deemed a tPA candidate given duration of symptoms with unclear onset as well and rapid improvement of symptoms. Neurology contacted by ED physician and said he would be appropriate for transfer if there was an LVO on the CTA and if not admitting here for further work-up was reasonable. No LVO on CTA and hospitalist contacted for admission. Evaluated patient with multiple family members at bedside who corroborated above story. He reports he is almost completely back to normal and family said speech is significantly improved though not quite back to normal though is no longer dysarthric and is not having word finding difficulties. Denied any other recent complaints or symptoms and no further complaints at this time. [facility] Medical History Diabetes Stroke Home Medications aspirin 325 mg tablet 325 mg PO DAILY@0800 10/27/14 [History Last Taken Unknown] etodolac 500 mg tablet 500 mg PO ONCE #60 tabs 11/05/20 [Rx Last Taken Unknown] metformin 500 mg 24 hr tablet,extended release 2,000 mg PO DAILY 11/05/20 [History Last Taken Unknown] Allergy/AdvReac Type Severity Reaction Status Date / Time No Known Allergies Allergy Verified 05/12/22 06:32 Family History (Updated 11/05/20 @ 08:02 by Ragini Mccollum) Mother Diabetes Sister Diabetes Surgical History No history of previous surgery Social History household members: spouse and children housing: house Smoking Status: Current every day smoker tobacco type: cigarettes alcohol intake: current alcohol intake frequency: a few times a week Alcohol type: beer details: on weekends what type of physical activity do you participate in: none do you feel safe at home: Yes ROS Constitutional Constitutional: Reports other Details: Slow weight loss ; Denies chills, fever(s) or night sweats Eyes Eyes: Denies change in vision ENT HEENT: Denies headache(s), nasal congestion or sore throat Cardiovascular Cardiovascular: Denies chest pain or palpitations Respiratory/Chest Respiratory/Chest: Denies cough, productive cough or shortness of breath with exertion Gastrointestinal Gastrointestinal: Reports other Details: denies changes in bowel or bladder ; Denies abdominal pain Genitourinary Genitourinary: Reports other Details: denies changes in urination Musculoskeletal Musculoskeletal: Denies joint pain Neurologic Neurologic: Reports other Details: Left arm numbness and weakness, right-sided discoordination and right-sided facial droop, dysarthria, all improving Psychiatric Psychiatric: Denies anxiety Hematologic/Lymphatic Hematologic/Lymphatic: Denies easy bleeding Allergic/Immunologic Allergic/Immunologic: Reports other Details: denies rashes Vital Signs Vital Signs Vital Signs: 05/12/22 06:07 05/12/22 06:10 05/12/22 06:10 Temperature 97 F L 97 F L Temperature Source Temporal Temporal Pulse Rate 110 H 110 H Respiratory Rate 24 H 24 H Blood Pressure 121/88 H 121/88 H Blood Pressure Mean 99 99 Pulse Ox 94 94 Oxygen Delivery Method Room Air Room Air Room Air 05/12/22 06:10 05/12/22 06:40 05/12/22 07:02 Temperature Temperature Source Pulse Rate 110 H 89 98 Respiratory Rate 24 H 18 16 Blood Pressure 121/88 H 124/79 H 136/77 H Blood Pressure Mean 99 94 96 Pulse Ox 94 96 95 Oxygen Delivery Method Room Air Room Air Room Air 05/12/22 07:32 05/12/22 08:04 Temperature 97.6 F L Temperature Source Temporal Pulse Rate 92 90 Respiratory Rate 16 16 Blood Pressure 109/96 H Blood Pressure Mean 100 Pulse Ox 95 96 Oxygen Delivery Method Room Air Room Air Weight Weight: 85 kg Body Mass Index (BMI) 25.4 Physical Exam Const alert Constitutional Narrative: Oriented HEENT normocephalic and head/scalp atraumatic Eyes PERRL Eyes Narrative: EOM intact, anicteric Neck supple Resp normal respiratory effort and clear to auscultation bilaterally Cardio regular rate and regular rhythm GI soft to palpation, non-tender and non-distended Extremity Extremity Narrative: No edema appreciated Neuro oriented x3, CN's II-XII intact bilaterally and moves all extremities Neuro Narrative: Bilateral lower extremities 5 out of 5 strength, reflexes 2+ patellar on right and 1+ patellar on left, no clonus, upper extremities left 4+ out of 5 strength and 5 out of 5 on right, brachial/brachial radialis 1+ and symmetric reflexes Coordination / Balance: [id number] test normal Psych Psych Narrative: Cooperative, tearful at times Results Lab / Micro Data Result Diagrams: 05/12/22 06:23 05/12/22 06:23 Labs: Laboratory Results - last 24 hr 05/12/22 06:10: POC Glucose 179 H 05/12/22 06:23: WBC 6.2, RBC 5.18, Hgb 15.3, Hct 45.3, MCV 87.5, MCH 29.5, MCHC 33.8, RDW Std Deviation 39.3, RDW Coeff of Jv 12.2, Plt Count 213, MPV 10.7, Immature Gran % (Auto) 0.300, Neut % (Auto) 58.1, Lymph % (Auto) 31.8, O[place] % (Auto) 6.6, Eos % (Auto) 2.6, Baso % (Auto) 0.6, Absolute Neuts (auto) 3.6, Abso lute Lymphs (auto) 1.96, Nucleated RBC % 0 05/12/22 06:23: PT 12.6, INR 1.0, APTT 25.4 05/12/22 06:23: Sodium 140, Potassium 4.2, Chloride 108 H, Carbon Dioxide 25.0, Anion Gap 7, BUN 13, Creatinine 0.96, Estim Creat Clear Calc 103.29, Est GFR (MDRD) Af Amer 107, Est GFR (MDRD) Non-Af 88, BUN/Creatinine Ratio 13.5, Glucose 205 H, Calcium 8.8, Troponin I High Sens 7 Rhythm Strip Rhythm Strip: Sinus Rhythm Rate: 85 Ectopy: None Radiology Impression Brain CT 05/12/22 06:10 IMPRESSION: No acute abnormality on noncontrast CT. CT angiogram and/or MRI may be helpful to evaluate for acute infarct as clinically indicated. Electronically Signed: Melanie Moses MD at 6:25 EST , ADDENDUM: 05/12/22 0634 IMPRESSION: No acute abnormality on noncontrast CT. CT angiogram and/or MRI may be helpful to evaluate for acute infarct as clinically indicated. N.B. : The above Results were Read Back by Melanie Moses MD to Robel Harris MD, and understanding confirmed on 05/12/2022 06:27:37 (ET). Electronically Signed: Melanie Moses MD at 6:25 EST , Chest X-Ray 05/12/22 06:10 IMPRESSION: No evidence of active intrathoracic disease. Electronically Signed: Melanie Moses MD at 7:23 EST , Head/Neck CTA 05/12/22 06:10 IMPRESSION: Normal CTA Head and neck with contrast. Electronically Signed: Agustin Cesar MD at 6:52 EST Reading Location ID and State: [id number] / , Service support , ADDENDUM: 05/12/22 0707 IMPRESSION: Normal CTA Head and neck with contrast. N.B. : The above Results were Read Back by Agustin Cesar MD to Robel Harris MD, and understanding confirmed on 05/12/2022 07:00:22 (ET). Electronically Signed: Agustin Cesar MD at 6:52 EST Reading Location ID and State: [id number] / , Service support , Assessment & Plan Assessment/Plan (1) Neurological deficit present: PLAN: Plan #Multiple neurological deficits?improving Concerning for CVA CT with no acute findings and CTA with no LVO Not a tPA candidate Will obtain MRI as well as echocardiogram Admit to telemetry NIH and vitals every 4 Permissive hypertension A.m. lipid panel Will load aspirin and start 81 mg daily Pending MRI results we will consider Plavix and neurology consult High intensity statin started #Type II diabetes mellitus On his problem list, glucose here 205 Holding his metformin Last A1c 8.9 Sliding scale insulin and glucose checks, may need regimen intensified as an outpatient #DVT ppx: Lynsey Pack MD Charges/Coding Visit Charges Inpatient E&M: 53283 Init Hosp L2
[2022-05-12] MEDS: Insulin Lispro 100 UNIT/ML INSULN.PEN SC (11:31)
[2022-05-12 11:45] LABS: Bedside Glucose 274 mg/dL (74-106)
--- NOTE | 2022-05-12 11:52 | CASEMGMT ---
Tertiary facilities in-network with patient's insurance: , [facility], [facility], [facility], [facility].
--- NOTE | 2022-05-12 12:12 | DCINST_ITS ---
Discharge Instructions Diet Discharge Diet: No restrictions Activity Discharge Activity: Return to Normal Activity (Will need pt/ot to eval) Follow Up Care Test Results: Test results from this visit will be discussed in further detail at your follow- up appointment, if applicable. Discharge Plan Admission Admit Date/Time: 05/12/22 07:54 Primary Reason for Your Visit: Neurological changes Attending Provider: Keily Pack Primary Care Provider: Drake Deal Instructions Patient Instructions: ED Stroke, Completed Discharge Orders/Prescriptions Prescriptions: New atorvastatin 80 mg Tablet 80 mg PO QHS Qty: 0 0RF aspirin 81 mg Tablet,Chewable 81 mg PO BREAKFAST Qty: 0 0RF insulin lispro [Humalog KwikPen Insulin] 100 unit/mL Insulin Pen See Protocol subcut ACHS Qty: 0 0RF Protocol: 3. Sliding Scale Insulin Med Dosing Condition: 150-189 mg/dl = 1 unit Condition: 190-229 mg/dl = 2 units Condition: 230-269 mg/dl = 3 units Condition: 270-309 mg/dl = 4 units Condition: 310-349 mg/dl = 5 units Condition: 350-399 mg/dl = 6 units Condition: 400-449 mg/dl = 7 units Condition: Greater than 449 call physician Protocol Text: - Use for Total Daily Dose of Insulin 37-55 units - Obsese, infected, or steroid patients MEDIUM DOSING ALGORITHIM Discontinued aspirin 325 MG tablet 325 mg PO DAILY@0800 metformin 500 mg tablet,ER [email or web address] 24 hr 2,000 mg PO DAILY Referrals / Follow Up: Drake Deal MD [Primary Care Provider] - Disposition Disposition (needs filled in before D/C Order can be placed): [facility]
--- NOTE | 2022-05-12 12:22 | DS.PCM_ITS ---
Providers Date of Admission: 05/12/22 Date of Discharge: 05/12/22 Primary Care Physician: Dr. Drake Deal MD Reason For Visit: ISCHEMIC STROKE Diagnosis Discharge Diagnosis (1) Neurological deficit present: Status: Acute Code(s): R29.818 - Other symptoms and signs involving the nervous system Plan #Acute ischemic stroke #Type II diabetes mellitus Medications at Discharge Home Medications aspirin 81 mg chewable tablet 81 mg PO BREAKFAST #0 tabs 05/12/22 atorvastatin 80 mg tablet 80 mg PO QHS #0 tabs 05/12/22 insulin lispro 100 unit/mL subcutaneous pen (Humalog KwikPen (U-100) Insulin) See Protocol subcut ACHS #0 mL 05/12/22 Hospital Course Procedures - (Echo, CTA head, MRI) Summary of Care Provided Minutes Spent on Discharge: 35 Hospital Course: Patient admitted 05/12 and discharged same day. HPI: LIYAH ARREDONDO, 38-year-old male with a history of CVA in 2010 with no residual deficits and type 2 diabetes mellitus presented 05/12/2022 with left arm weakness, dysarthria, right side discoordination and right-sided facial droop.? His last known seen normal was at 10:30 PM, there was question if he had any deficits when he woke up at midnight as he had yelled out of his room about the dog and appeared to be able to get his words out but was not seen and he is unsure if he had any deficits at that time.? Woke up at 430 and noticed deficits, initially tried to go to work but came back and his brought him to the ER.? In the ED he was not deemed a tPA candidate given duration of symptoms with unclear onset as well and rapid improvement of symptoms.? Neurology contacted by ED physician and said he would be appropriate for transfer if there was an LVO on the CTA and if not admitting here for further work-up was reasonable.? No LVO on CTA and hospitalist contacted for admission.? Evaluated patient with multiple family members at bedside who corroborated above story.? He reports he is almost completely back to normal and family said speech is significantly improved though not quite back to normal though is no longer dysarthric and is not having word finding difficulties.? Denied any other recent complaints or symptoms and no further complaints at this time. He was admitted and MRI was obtained, admitted to telemetry, [facility] Q4, given aspirin, high intensity statin. NH and floor was 0. Received call from patient's RN who reported radiologist Dr. Aurelio Coleman reached out to her that MRI read as stroke and when he reviewed the CTA he read the CT as having a throm boembolic occlusion in the anterior trunk and reported he may need thrombectomy. Reviewed MRI read which noted acute cortical gyral ischemic infarct involving nearly the entire right inferior frontal gyrus and the right anterior insular cortex and also recently resulted echo which had concern for PFO. Patient's RN to call and have radiology addendum CTA and I spoke with our scheduling coordinator and obtained information for stroke transfer to [facility]. Called and spoke with Dr. Meza with the stroke team, given duration of symptoms and resolve deficits he was unsure if transfer would be beneficial but he did have a diffusion mismatch and advised to speak with inpatient neurologist Dr. Gorman. Dr. Gorman was contacted and we discussed the case, she reported they would accept the patient and to send him to [facility] ED directly as a stroke alert. It was reported the accepting physician was Dr. Tiffani Arciniega. Coordinated with PCU staff for transfer. Spoke to patient and his , she had just left so she was placed on speaker phone in the room and explained present situation as well as finding on the MRI, echo, and that a different radiologist reviewed the CTA and thought there may be need for intervention and plans to transfer, they are both in agreement. Patient still denying any worsened symptoms at the time of evaluation and was transferred to [facility]. Weight / BMI Weight Weight: 85 kg Body Mass Index (BMI) 25.4 ABG / Lab / Microbiology Data Result Diagrams: 05/12/22 06:23 05/12/22 06:23 Laboratory: Laboratory Results - last 24 hr 05/12/22 06:10: POC Glucose 179 H 05/12/22 06:23: WBC 6.2, RBC 5.18, Hgb 15.3, Hct 45.3, MCV 87.5, MCH 29.5, MCHC 33.8, RDW Std Deviation 39.3, RDW Coeff of Jv 12.2, Plt Count 213, MPV 10.7, Immature Gran % (Auto) 0.300, Neut % (Auto) 58.1, Lymph % (Auto) 31.8, [place]key % (Auto) 6.6, Eos % (Auto) 2.6, Baso % (Auto) 0.6, Absolute Neuts (auto) 3.6, Absolute Lymphs (auto) 1.96, Nucleated RBC % 0 05/12/22 06:23: PT 12.6, INR 1.0, APTT 25.4 05/12/22 06:23: Sodium 140, Potassium 4.2, Chloride 108 H, Carbon Dioxide 25.0, Anion Gap 7, BUN 13, Creatinine 0.96, Estim Creat Clear Calc 103.29, Est GFR (MDRD) Af Amer 107, Est GFR (MDRD) Non-Af 88, BUN/Creatinine Ratio 13.5, Glucose 205 H, Calcium 8.8, Troponin I High Sens 7 05/12/22 11:26: POC Glucose 274 H Radiography Diagnostic Testing: Radiology Impression Brain CT 05/12/22 06:10 IMPRESSION: No acute abnormality on noncontrast CT. CT angiogram and/or MRI may be helpful to evaluate for acute infarct as clinically indicated. Electronically Signed: Melanie Moses MD at 6:25 EST Reading Location ID and State: [facility] / [place] Tel , Service support , ADDENDUM: 05/12/22 0634 IMPRESSION: No acute abnormality on noncontrast CT. CT angiogram and/or MRI may be helpful to evaluate for acute infarct as clinically indicated. N.B. : The above Results were Read Back by Melanie Moses MD to Robel Harris MD, and understanding confirmed on 05/12/2022 06:27:37 (ET). Electronically Signed: Melanie Moses MD at 6:25 EST Reading Location ID and State: [facility] / [place] Tel , Service support , ADDENDUM: 05/12/22 1117 IMPRESSION: undefined Chest X-Ray 05/12/22 06:10 IMPRESSION: No evidence of active intrathoracic disease. Electronically Signed: Melanie Moses MD at 7:23 EST , Head/Neck CTA 05/12/22 06:10 IMPRESSION: Normal CTA Head and neck with contrast. Electronically Signed: Agustin Cesar MD at 6:52 EST Reading Location ID and State: [id number] / , Service support , ADDENDUM: 05/12/22 0707 IMPRESSION: Normal CTA Head and neck with contrast. N.B. : The above Results were Read Back by Agustin Cesar MD to Robel Harris MD, and understanding confirmed on 05/12/2022 07:00:22 (ET). Electronically Signed: Agustin Cesar MD at 6:52 EST Reading Location ID and State: [id number] / , Service support , Brain MRI 05/12/22 08:11 IMPRESSION: Acute cortical gyral ischemic infarct involving nearly the entire right inferior frontal gyrus and the right anterior insular cortex. Electronically Signed: Aurelio Coleman MD at 10:36 EST , ADDENDUM: 05/12/22 1054 IMPRESSION: Acute cortical gyral ischemic infarct involving nearly the entire right inferior frontal gyrus and the right anterior insular cortex. N.B. : The above Results were Read Back by Aurelio Coleman MD to Nette Carr RN, and understanding confirmed on 05/12/2022 10:47:57 (ET). Electronically Signed: Aurelio Coleman MD at 10:36 EST , Echocardiogram 05/12/22 08:11 Interpretation Summary The left ventricular ejection fraction is 55 %. Bubble contrast study appears positive for PFO. Consider RYLAND for further evaluation if clinically indicated. Ordering Physician: Keily Pack Referring Physician: Sergio Deal M.D. Performed By: Roxanne Ruiz RCS D/C Instructions Discharge Diet: No restrictions Meaningful Use Info Meaningful Use Diagnoses (Choose all that apply): Ischemic CVA CVA Therapy Assessed for PT,OT and/or ST?: No Reason therapy not assessed?: Patient Refused Ischemic Stroke Antithrombotic order at d/c?: Yes Dx of Atrial fib/flutter?: No Statins at discharge?: Yes Primary Dx Acute Ischemic CVA?: Yes IV tPA ordered during stay?: No Reason IV t-PA not ordered: Medical Contraindication Discharge Plan Admission Admit Date/Time: 05/12/22 07:54 Primary Reason for Your Visit: Neurological changes Attending Provider: Keily Pack Primary Care Provider: Drake Deal Instructions Patient Instructions: ED Stroke, Completed Discharge Orders/Prescriptions Prescriptions: New atorvastatin 80 mg Tablet 80 mg PO QHS Qty: 0 0RF aspirin 81 mg Tablet,Chewable 81 mg PO BREAKFAST Qty: 0 0RF insulin lispro [Humalog KwikPen Insulin] 100 unit/mL Insulin Pen See Protocol subcut ACHS Qty: 0 0RF Protocol: 3. Sliding Scale Insulin Med Dosing Condition: 150-189 mg/dl = 1 unit Condition: 190-229 mg/dl = 2 units Condition: 230-269 mg/dl = 3 units Condition: 270-309 mg/dl = 4 units Condition: 310-349 mg/dl = 5 units Condition: 350-399 mg/dl = 6 units Condition: 400-449 mg/dl = 7 units Condition: Greater than 449 call physician Protocol Text: - Use for Total Daily Dose of Insulin 37-55 units - Obsese, infected, or steroid patients MEDIUM DOSING ALGORITHIM Discontinued aspirin 325 MG tablet 325 mg PO DAILY@0800 metformin 500 mg tablet,ER [email or web address] 24 hr 2,000 mg PO DAILY Referrals / Follow Up: Drake Deal MD [Primary Care Provider] - Disposition Disposition (needs filled in before D/C Order can be placed): Acute Care Hospital
--- NOTE | 2022-05-12 13:00 | NURSING ---
physicians ambulance has arrived to transport pt to [facility]
== END 2022-05-12 12:58 | disposition short-term general hospital (02) | DRG 66 ==
LOC: ED 07:04 → PCU 09:07
PROVIDERS: Admitting Provider Internal Medicine; Emergency Provider Emergency Medicine; PCP Family Medicine; Visit Provider Internal Medicine
DX: I63.9 Cerebral infarction, unspecified (principal); E11.9 Type 2 diabetes mellitus without complications; Z79.4 Long term (current) use of insulin; G83.24 Monoplegia of upper limb affecting left nondominant side; F17.210 Nicotine dependence, cigarettes, uncomplicated; R47.1 Dysarthria and anarthria; R29.810 Facial weakness; R27.8 Other lack of coordination; R29.713 NIHSS score 13; R29.708 NIHSS score 8; Z79.82 Long term (current) use of aspirin; Z86.73 Personal history of transient ischemic attack (TIA), and cerebral infarction without residual deficits
CPT/HCPCS: 70450; 70496; 70498; 70551; 71045; 80048; 82962; 84484; 85025; 85610; 85730; 93005; 93306; 94762; 99252; 99284; Q9967; A4216; G0463